=== PATIENT | female | born 1980 | race Caucasian/White ===

== ENCOUNTER 2018-07-20 07:20 | Outpatient (CLI) | payer OTHER ==
--- NOTE | 2018-07-20 09:50 | CT ---
CT ABDOMEN AND PELVIS WITH ORAL AND IV CONTRAST: HISTORY: Right lower quadrant abdominal pain and swelling. Surgical history includes total hysterecto my, bladder sling surgery and prolapsed bladder mesh removal FINDINGS: There are bilateral breast implants. The lung bases are clear. There is a 5 mm low-density lesion in the dome of the liver and a 3 mm low-density lesion in the inferior aspect of the right lobe of the liver, likely cysts. No calcified gallstones are seen. The spleen, pancreas, adrenal glands and kidne ys are normal. No free air is seen. Enlarged lymph nodes are seen in the ileocecal chain. A normal-appearing appendi x is not visualized. There is inflammatory change in the right lower quadrant with thickening of the proximal descending colon and cary of the terminal ileum. There is a right-sided the 3.7 cm pock et of fluid collection in the pelvis. The small bowel loops are not abnormally dilated. The patient is post hysterectomy. Postoperative changes and metallic hardware is seen in the lower alfred mbar spine. IMPRESSION: Findings are suggestive of ruptured appendicitis and 3.7 cm abscess formation in the right deep pelv is. Surgical consultation is recommended. This exam was interpreted in consultation with Dr. Javid Vivar who concurs. Findings were discussed over the telephone with Dr. Calli Newsome at 9:45 AM.
[2018-07-20] MEDS ORDERED: Iopamidol 370 76% 100 ML VIAL ONE (09:52)
[2018-07-20] MEDS ORDERED: Iopamidol 370 76% 50 ML VIAL FS ONE (09:52)
== END 2018-07-20 07:21 | disposition home or self-care (01) ==
LOC: CT 07:20
PROVIDERS: ATTEND Family Medicine
DX: R19.03 Right lower quadrant abdominal swelling, mass and lump (principal)
CPT/HCPCS: 74177; Q9967

== ENCOUNTER 2018-08-11 14:05 | Outpatient (CLI) | payer OTHER ==
[~2018-08-11 14:05] MED LIST: Iopamidol 370 76% 100 ML VIAL ONE
--- NOTE | 2018-08-11 14:51 | CT ---
CT OF THE ABDOMEN AND PELVIS WITH IV CONTRAST INDICATION: History of acute appendicitis status post rupture, treated with antibiotic therapy COMPARISON: CT abdomen pelvis dated 07/20/2018 FINDINGS: ABDOMEN: Lung bases: Clear Liver: There is a tiny subcentimeter cyst within segment 6 of the right hepatic lobe. Gallbladder: Normal appearing. Pancreas: Normal. Adrenal glands: Normal. Spleen: Normal. Kidneys: Normal. Retroperitoneum of the upper abdomen: No lymphadenopathy or free fluid is identified. Pelvis: Small and large bowel: The 4.6 cm suspected phlegmon in the region of the appendix on the prior exami nation is now much more contracted now measuring 1.7 x 2.3 cm. There is less right lower quadrant mesenteric lymphadenopathy and less lymphadenopathy seen along the right iliac chain region. No drain able fluid collection is evident. There is improvement in the bowel wall thickening involving the cecum and ascending colon. Bladder: Normal. Rectal and perirectal soft tissues:Normal. Reproductive structures: There is a 1.5 cm cyst within the right adnexa that is decreased in size fro m the prior exam where it measured 3.5 cm. Free fluid in pelvis: No free fluid is evident. Lymphadenopathy pelvis: No lymphadenopathy is evident. Osseous structures: There is stable postsurgical change involving the lower lumbar spine. No acute os seous abnormality is evident. IMPRESSION: 1. Significant reduction in size of the prominent phlegmon seen within the right lower quadrant of th e abdomen on the prior CT examination dated July 20, 2018. There is a focal region of stellate hyperdensity seen within this region now measuring 1.8 x 2.6 cm suspicious for some residual scarring or possibly small amount of residual phlegmon. There has been significant improvement in the lymphadenopathy of the right lower quadrant abdomen and right hemipelvis and resolution of the wall t hickening involving the cecum and ascending colon. An additional follow-up CT examination in 3-4 weeks is recommended to document full resolution. 2. Involuting right adnexal cyst now measuring 1.5 cm where previously measured 3.5 cm.
== END 2018-08-11 14:06 | disposition home or self-care (01) ==
LOC: SCSCT 14:05
PROVIDERS: ATTEND Surgery
DX: L02.211 Cutaneous abscess of abdominal wall (principal); J35.8 Other chronic diseases of tonsils and adenoids; R59.0 Localized enlarged lymph nodes
CPT/HCPCS: 74177; Q9967